=== PATIENT | male | born 1970 | race Caucasian/White ===

== ENCOUNTER 2016-11-30 16:38 | Emergency (ER) | payer MEDICARE, MEDICAID ==
[2016-11-30] MEDS ORDERED: amLODIPine 5 MG Tab PO ONE (17:02)
--- NOTE | 2016-11-30 17:08 | EDM.PDOC ---
ED HPI GENERAL MEDICAL PROBLEM - General Chief Complaint: General Stated Complaint: SOB, HIGH BP Time Seen by Provider: 11/30/16 16:50 Source of Information: Reports: Patient, Family History Limitations: Reports: Other (poor historian, no old records.) - History of Present Illness INITIAL COMMENTS - FREE TEXT/NARRATIVE: 46 yo morbidly obese male was seen in urgent care today for "phlegm" and referred to the ER due to elevated BP. Has no sx's of this. Snores at night. Fell asleep at work today. Had HCTZ 12.5 mg qd added to his lisinopril 40 mg this past month and had not yet had a clinic recheck of his BP since this med was added. Denies fever. Is a non-smoker. 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: Other (see below) (none) - Related Data Allergies Allergy/AdvReac Type Severity Reaction Status Date / Time No Known Allergies Allergy Verified 11/30/16 16:52 Home Meds: Home Meds amLODIPine [Norvasc] 5 mg PO DAILY #14 tab 11/30/16 [Rx] ED ROS GENERAL - Review of Systems Review Of Systems: See Below Constitutional: Reports: No Symptoms HEENT: Reports: No Symptoms Respiratory: Reports: Cough, Sputum (clear), Other (snores at night.) Cardiovascular: Reports: No Symptoms GI/Abdominal: Reports: No Symptoms : Reports: No Symptoms Musculoskeletal: Reports: No Symptoms Skin: Reports: No Symptoms Neurological: Reports: No Symptoms Psychiatric: Reports: No Symptoms ED EXAM, GENERAL - Physical Exam Exam: See Below Exam Limited By: No Limitations General Appearance: Alert, WD/WN, No Apparent Distress, Obese Eye Exam: Bilateral Eye: Normal Inspection, PERRL Ears: Normal External Exam, Normal Canal, Hearing Grossly Normal Ear Exam: Bilateral Ear: Auricle Normal, Canal Normal Nose: Normal Inspection, Normal Mucosa Throat/Mouth: Normal Inspection, Normal Lips, Normal Teeth, Normal Oropharynx, Normal Voice, No Airway Compromise Head: Atraumatic, Normocephalic Neck: Normal Inspection, Supple Respiratory/Chest: No Respiratory Distress, Lungs Clear, Normal Breath Sounds, No Accessory Muscle Use Cardiovascular: Regular Rate, Rhythm, No Edema GI/Abdominal: Normal Bowel Sounds, Soft, Non-Tender, No Distention Back Exam: Normal Inspection. No: CVA Tenderness (R), CVA Tenderness (L) Extremities: Normal Range of Motion, Non-Tender, No Pedal Edema Neurological: Alert, Oriented, CN II-XII Intact, Normal Cognition, No Motor/ Sensory Deficits Psychiatric: Normal Affect, Normal Mood Skin Exam: Warm, Dry, Intact, Normal Color, No Rash Lymphatic: No Adenopathy Course - Vital Signs Last Recorded V/S: Last Vital Signs Temp 36.8 C 11/30/16 16:53 Pulse 88 11/30/16 16:53 Resp 20 11/30/16 16:53 BP 187/83 H 11/30/16 16:53 Pulse Ox 98 11/30/16 16:53 - Orders/Labs/Meds Meds: Medications Discontinued Medications Generic Name Dose Route Start Last Admin Trade Name Freq PRN Reason Stop Dose Admin Amlodipine Besylate 5 mg 11/30/16 17:02 Norvasc PO 11/30/16 17:03 ONETIME ONE Departure - Departure Time of Disposition: 17:20 Disposition: Home, Self-Care 01 Condition: Good (HTN) Clinical Impression: Morbid obesity, Snoring HTN (hypertension) Qualifiers: Hypertension type: unspecified Qualified Code(s): I10 - Essential (primary) hypertension - Discharge Information Prescriptions: amLODIPine [Norvasc] 5 mg PO DAILY #14 tab Referrals: Von Manuel MD [Primary Care Provider] - Forms: ED Department Discharge Additional Instructions: See Dr. Manuel for BP recheck justyna. Add amlodipine 5 mg to your current BP meds daily starting tomorrow. Avoid salt. Discuss possible testing for sleep apnea with your doctor when you seen him. Use Robitussin DM for your phlegm/cough problem, follow directions on bottle.
[2016-11-30 17:15] VITALS: BP 167/79
== END 2016-11-30 17:15 | disposition home or self-care (01) ==
LOC: FB.ED 16:38
DX: I10 Essential (primary) hypertension (principal); R06.83 Snoring; E66.01 Morbid (severe) obesity due to excess calories; Z79.899 Other long term (current) drug therapy
CPT/HCPCS: 99283; A9270